=== PATIENT | male | born 1930 | race Caucasian/White ===

== ENCOUNTER 2017-01-03 04:22 | Inpatient (IN) | payer MEDICARE, BC ==
[2017-01-03] VITALS (545 sets, daily range): BP systolic 142–171; BP diastolic 74–143; PULSE 73–93; TEMP 96.9–98.2; O2SAT 67–100
[~2017-01-03] VITALS: Ht 172.7 cm; Wt 111.6 kg
[2017-01-03] MEDS ORDERED: ASPIRIN 32325 MG/TAB PO (04:49)
[2017-01-03] MEDS ORDERED: PRILOSEC 20MG20 MG PO (04:51)
[2017-01-03] MEDS ORDERED: ASPIRIN 32325 MG/TA1 PO (04:51)
[2017-01-03] MEDS ORDERED: EC-NAPROSYN500 MG PO (04:51)
[2017-01-03 04:52] LABS: MEAN CELL VOLUME 94 fl (80.0-100.0); MEAN CORPUSCULAR HGB CONC 32 g/dl (33.0-37.0); MEAN PLATELET VOLUME 11.9 fl (7.4-10.4); PLATELET COUNT 163 K/mm3 (130-400); RED BLOOD COUNT 6.12 M/mm3 (4.20-5.60)
[2017-01-03] MEDS ORDERED: COZAAR 50MG50 MG/TAB PO (04:52)
[2017-01-03 04:55] LABS: PROTHROMBIN TIME 11.3 SECONDS (9.7-12.8)
[2017-01-03 04:57] LABS: ADJUSTED CALCIUM 8.8 mg/dL (8.4-10.2); ALANINE AMINOTRANSFERASE 35 U/L (21-72); ALBUMIN 4.2 gm/dL (3.5-5.0); ALKALINE PHOSPHATASE 84 U/L (50-136); ANION GAP 11 mmol/L (7-16); BILIRUBIN,TOTAL 1.3 mg/dL (0.0-1.0); BLOOD UREA NITROGEN 19 mg/dL (9-20); CARBON DIOXIDE 29 mmol/L (22-30); CHLORIDE 99 mmol/L (98-107); CREATINE KINASE 55 U/L (55-170); CREATININE, serum 1.19 mg/dL (0.66-1.25); GLUCOSE 121 mg/dL (74-106); LIPASE 50 U/L (23-300); POTASSIUM 4.7 mmol/L (3.4-5.0); SODIUM 138 mmol/L (137-145); TOTAL PROTEIN 7.6 gm/dL (6.4-8.2)
[2017-01-03 04:59] LABS: ADD PATHOLOGY DIFF REVIEW NO; HEMATOCRIT 57.4 % (42.0-52.0); HEMOGLOBIN 18.3 g/dl (13.5-18.0); MEAN CORPUSCULAR HEMOGLOBIN 30 pg (27.0-31.0)
[2017-01-03 05:07] LABS: BAND 15 % (0-10); EOSINOPHIL 1 % (0-4); NEUTROPHILS 55 % (42.0-75.2); PLATELET ESTIMATE NORMAL (NORMAL); TOTAL CELLS COUNTED 100
[2017-01-03 05:09] LABS: B-TYPE NATRIURETIC PEPTIDE 197 pg/mL (0-450); TROPONIN-I < 0.012 ng/mL (0.000-0.034)
[2017-01-03 07:22] LABS: PH 5 (5-8); SQUAMOUS EPITHELIAL 0-2 /hpf; URINE APPEARANCE Clear; URINE BACTERIA None Seen /hpf; URINE BILIRUBIN Negative (NEGATIVE); URINE BLOOD Negative (NEGATIVE); URINE COLOR Yellow; URINE GLUCOSE Negative (NEGATIVE); URINE KETONE Negative (NEGATIVE); URINE RBC 0-2 /hpf; URINE WBC 0-2 /hpf
[2017-01-03 14:02] LABS: ARTERIAL BLD GAS O2 SATURATION 98.7 % (92-100); ARTERIAL BLD GAS TCO2 CT 27.1; ARTERIAL BLOOD GAS BASE EXCESS -4.6 (-2-2); ARTERIAL BLOOD GAS HCO3 25.1 meq/L (22-26); ARTERIAL BLOOD GAS pH 7.22 (7.35-7.45); OXYHEMOGLOBIN 97.5 %
[2017-01-03 14:03] LABS: ARTERIAL BLOOD GAS PO2 198.2 mmHg (80-100); ATS? YES
[2017-01-03 14:04] LABS: ALLEN TEST NO
[2017-01-03] MEDS ORDERED: NORVASC 5MG5 MG/TAB PO (17:28)
[2017-01-03] MEDS ORDERED: DITROPAN XL 5MG5 M1 PO (17:28)
[2017-01-03 19:12] LABS: ARTERIAL BLD GAS O2 SATURATION 96.3 % (92-100); ARTERIAL BLD GAS TCO2 CT 30.5; ARTERIAL BLOOD GAS BASE EXCESS 0.8 (-2-2); ARTERIAL BLOOD GAS HCO3 28.7 meq/L (22-26); ARTERIAL BLOOD GAS PHT 7.32 C (7.35-7.45); ARTERIAL BLOOD GAS PO2 85.1 mmHg (80-100); ARTERIAL BLOOD GAS PO2T 85.1 (80-100); ARTERIAL BLOOD GAS pH 7.32 (7.35-7.45); OXYHEMOGLOBIN 95.5 %
[2017-01-03 19:13] LABS: ALLEN TEST YES; ALLENS TEST RESULT PASS; ATS? YES
[2017-01-03 19:15] LABS: CALCIUM 8.8 mg/dL (8.4-10.2); CREATININE, serum 1.02 mg/dL (0.66-1.25); POTASSIUM 5.4 mmol/L (3.4-5.0)
[2017-01-04] VITALS (987 sets, daily range): BP systolic 139–159; BP diastolic 69–91; PULSE 81–110; TEMP 97–98.9; O2SAT 76–100
[2017-01-04 09:21] LABS: ADD PATHOLOGY DIFF REVIEW NO
[2017-01-04 09:27] LABS: MEAN CELL VOLUME 95 fl (80.0-100.0); MEAN CORPUSCULAR HGB CONC 32 g/dl (33.0-37.0); MEAN PLATELET VOLUME 11.9 fl (7.4-10.4); PLATELET COUNT 147 K/mm3 (130-400); RED BLOOD COUNT 6.27 M/mm3 (4.20-5.60); REDCELL DISTRIBUTION WIDTH-CV 14.2 % (11.5-14.5); WHITE BLOOD COUNT 19.7 K/mm3 (4.8-10.8)
[2017-01-04 09:30] LABS: HEMATOCRIT 59.6 % (42.0-52.0); MEAN CORPUSCULAR HEMOGLOBIN 30 pg (27.0-31.0)
[2017-01-04 09:35] LABS: ADJUSTED CALCIUM 8.9 mg/dL (8.4-10.2); ALBUMIN 4.3 gm/dL (3.5-5.0); BILIRUBIN,TOTAL 4.6 mg/dL (0.0-1.0); CALCIUM 9.1 mg/dL (8.4-10.2); CREATININE, serum 1.02 mg/dL (0.66-1.25); POTASSIUM 5.1 mmol/L (3.4-5.0); TOTAL PROTEIN 7.7 gm/dL (6.4-8.2)
[2017-01-04 10:17] LABS: BAND 23 % (0-10); NEUTROPHILS 73 % (42.0-75.2); TOTAL CELLS COUNTED 100
[2017-01-04 10:18] LABS: PLATELET ESTIMATE NORMAL (NORMAL)
[2017-01-05] VITALS (8 sets, daily range): BP systolic 109–130; BP diastolic 54–64; PULSE 95–111; TEMP 97.9–98.9
[2017-01-05 11:25] LABS: BASO % 0.2 % (0.0-2.0); GRAN # 17.9 (1.4-6.5); GRAN % 89.7 % (42.2-75.2); HEMOGLOBIN 17.2 g/dl (13.5-18.0); LYMPH # 0.5 (1.2-3.4); LYMPH % 2.6 % (20.0-51.0); MEAN CELL VOLUME 95 fl (80.0-100.0); MEAN CORPUSCULAR HEMOGLOBIN 30 pg (27.0-31.0); MEAN CORPUSCULAR HGB CONC 32 g/dl (33.0-37.0); MEAN PLATELET VOLUME 12.3 fl (7.4-10.4); MONO # 1.3 (0.1-0.6); MONO % 6.5 % (1.7-9.3); PLATELET COUNT 159 K/mm3 (130-400); RED BLOOD COUNT 5.71 M/mm3 (4.20-5.60); REDCELL DISTRIBUTION WIDTH-CV 14.4 % (11.5-14.5)
[2017-01-05 11:32] LABS: HEMATOCRIT 54.5 % (42.0-52.0)
[2017-01-05 11:42] LABS: ALBUMIN 3.7 gm/dL (3.5-5.0); BILIRUBIN,TOTAL 5.1 mg/dL (0.0-1.0); CALCIUM 8.8 mg/dL (8.4-10.2); CREATININE, serum 1.51 mg/dL (0.66-1.25); POTASSIUM 5.2 mmol/L (3.4-5.0); TOTAL PROTEIN 6.9 gm/dL (6.4-8.2)
[2017-01-06 02:39] VITALS: BP 123/58; PULSE 97; TEMP 98.5
[2017-01-06 05:44] VITALS: BP 119/62; PULSE 98; TEMP 98.2
[2017-01-06 09:48] VITALS: BP 128/61; PULSE 101; TEMP 98.1
[2017-01-06 10:53] LABS: HEMOGLOBIN 16.3 g/dl (13.5-18.0); MEAN CELL VOLUME 97 fl (80.0-100.0); MEAN CORPUSCULAR HEMOGLOBIN 30 pg (27.0-31.0); MEAN CORPUSCULAR HGB CONC 31 g/dl (33.0-37.0); MEAN PLATELET VOLUME 12.3 fl (7.4-10.4); PLATELET COUNT 175 K/mm3 (130-400); RED BLOOD COUNT 5.43 M/mm3 (4.20-5.60); REDCELL DISTRIBUTION WIDTH-CV 14.5 % (11.5-14.5); WHITE BLOOD COUNT 14.4 K/mm3 (4.8-10.8)
[2017-01-06 10:54] LABS: HEMATOCRIT 52.8 % (42.0-52.0)
[2017-01-06 10:55] LABS: ADD PATHOLOGY DIFF REVIEW NO
[2017-01-06 10:58] LABS: ADJUSTED CALCIUM 9.4 mg/dL (8.4-10.2); ALBUMIN 3.4 gm/dL (3.5-5.0); BILIRUBIN,TOTAL 4.3 mg/dL (0.0-1.0); CALCIUM 8.9 mg/dL (8.4-10.2); CREATININE, serum 1.16 mg/dL (0.66-1.25); POTASSIUM 5.2 mmol/L (3.4-5.0); TOTAL PROTEIN 6.9 gm/dL (6.4-8.2)
[2017-01-06 11:32] LABS: BAND 8 % (0-10); NEUTROPHILS 78 % (42.0-75.2); TOTAL CELLS COUNTED 100
[2017-01-06 11:34] LABS: PLATELET ESTIMATE NORMAL (NORMAL)
[2017-01-06 14:45] VITALS: BP 127/66; PULSE 108; TEMP 99.2
[2017-01-06] MEDS ORDERED: NORCO 325 MG-7.1 TAB PO (16:44)
[2017-01-06] MEDS ORDERED: LEVAQUIN 5500 MG/TA1 PO (16:44)
[2017-01-07 09:52] LABS: ALLEN TEST YES; ALLENS TEST RESULT PASS; ARTERIAL BLD GAS O2 SATURATION 94.1 % (92-100); ARTERIAL BLD GAS TCO2 CT 29.9; ARTERIAL BLOOD GAS BASE EXCESS -0.9 (-2-2); ARTERIAL BLOOD GAS pH 7.27 (7.35-7.45); ATS? YES; OXYHEMOGLOBIN 93.4 %
== END 2017-01-06 19:23 | disposition home or self-care (01) | DRG 417 ==
LOC: COL.ER 04:22 → JCC 09:02 → SURG 09:02 → ICU 09:02 → SURG 11:20 → ICU 12:56 → SURG 01-04 17:50 → ICU 01-04 17:50 → SURG 01-04 17:50
PROVIDERS: Emergency Medicine; Internal Medicine; Nurse Anesthetist, Certified Registered; Surgery
PROC: BF131ZZ Fluoroscopy of Gallbladder and Bile Ducts using Low Osmolar Contrast (ICD-10-PCS; 2017-01-03)
PROC: 0FT44ZZ Resection of Gallbladder, Percutaneous Endoscopic Approach (ICD-10-PCS; principal; 2017-01-03 10:30)
DX: K80.00 Calculus of gallbladder with acute cholecystitis without obstruction (principal); J96.01 Acute respiratory failure with hypoxia; I10 Essential (primary) hypertension; Z87.891 Personal history of nicotine dependence; E66.9 Obesity, unspecified; Z68.36 Body mass index [BMI] 36.0-36.9, adult; F10.10 Alcohol abuse, uncomplicated
CPT/HCPCS: OP; 99223; 99231-AI; 99232-AI; 99233-AI; J1956; J2270; J2405; J2704; J2930; J3010; J7030; J7120; J7512; Q9967

== ENCOUNTER 2017-01-07 17:12 | Inpatient (IN) | payer MEDICARE, BC ==
[~2017-01-07] VITALS: Ht 170.2 cm; Wt 111.9 kg
[~2017-01-07 17:12] MED LIST: ASPIRIN 32325 MG/TA1 PO; ASPIRIN 32325 MG/TAB PO; COZAAR 50MG50 MG/TAB PO; DITROPAN XL 5MG5 M1 PO; EC-NAPROSYN500 MG PO; LEVAQUIN 5500 MG/TA1 PO; NORCO 325 MG-7.1 TAB PO; NORVASC 5MG5 MG/TAB PO; PRILOSEC 20MG20 MG PO
[2017-01-07 17:38] VITALS: BP 99/44; PULSE 108
[2017-01-07 17:51] VITALS: BP 97/52; PULSE 107; TEMP 105; TEMP 98.5
[2017-01-07 21:52] VITALS: BP 109/61; PULSE 95; TEMP 97.3
[2017-01-07 23:10] LABS: HEMATOCRIT 46.5 % (42.0-52.0); HEMOGLOBIN 14.6 g/dl (13.5-18.0); MEAN CELL VOLUME 96 fl (80.0-100.0); MEAN CORPUSCULAR HEMOGLOBIN 30 pg (27.0-31.0); MEAN CORPUSCULAR HGB CONC 31 g/dl (33.0-37.0); MEAN PLATELET VOLUME 12.1 fl (7.4-10.4); PLATELET COUNT 175 K/mm3 (130-400); RED BLOOD COUNT 4.85 M/mm3 (4.20-5.60); REDCELL DISTRIBUTION WIDTH-CV 14.5 % (11.5-14.5); WHITE BLOOD COUNT 19.6 K/mm3 (4.8-10.8)
[2017-01-07 23:18] LABS: ADD PATHOLOGY DIFF REVIEW NO
[2017-01-07 23:23] LABS: BAND 2 % (0-10); EOSINOPHIL 1 % (0-4); METAMYELOCYTE 2 % (0-0); MYELOCYTE 2 % (0-0); NEUTROPHILS 77 % (42.0-75.2); POIKILOCYTOSIS 1+; TOTAL CELLS COUNTED 100
[2017-01-07 23:26] LABS: ADJUSTED CALCIUM 9.1 mg/dL (8.4-10.2); ALBUMIN 2.8 gm/dL (3.5-5.0); BILIRUBIN,TOTAL 3.8 mg/dL (0.0-1.0); CALCIUM 8.1 mg/dL (8.4-10.2); CREATININE, serum 1.84 mg/dL (0.66-1.25); POTASSIUM 4.7 mmol/L (3.4-5.0); TOTAL PROTEIN 5.9 gm/dL (6.4-8.2)
[2017-01-08 01:52] VITALS: BP 140/63; PULSE 90; TEMP 97.2
[2017-01-08 03:22] LABS: GRANULAR CAST >12 /lpf; PH 5 (5-8); SQUAMOUS EPITHELIAL 0-2 /hpf; URINE APPEARANCE Hazy; URINE BACTERIA None Seen /hpf; URINE BILIRUBIN Negative (NEGATIVE); URINE BLOOD 1+ (NEGATIVE); URINE COLOR Amber; URINE GLUCOSE Negative (NEGATIVE); URINE KETONE Negative (NEGATIVE); URINE UROBILINOGEN >=4.0 mg/dL (NEGATIVE)
[2017-01-08 05:24] VITALS: BP 130/57; PULSE 81; TEMP 98.2
[2017-01-08 06:56] LABS: HEMATOCRIT 49.7 % (42.0-52.0); HEMOGLOBIN 15.4 g/dl (13.5-18.0); MEAN CELL VOLUME 96 fl (80.0-100.0); MEAN CORPUSCULAR HEMOGLOBIN 30 pg (27.0-31.0); MEAN CORPUSCULAR HGB CONC 31 g/dl (33.0-37.0); MEAN PLATELET VOLUME 11.9 fl (7.4-10.4); PLATELET COUNT 200 K/mm3 (130-400); RED BLOOD COUNT 5.17 M/mm3 (4.20-5.60); REDCELL DISTRIBUTION WIDTH-CV 14.4 % (11.5-14.5)
[2017-01-08 06:58] LABS: WHITE BLOOD COUNT 20.3 K/mm3 (4.8-10.8)
[2017-01-08 07:10] LABS: ADJUSTED CALCIUM 9.3 mg/dL (8.4-10.2); ALBUMIN 2.9 gm/dL (3.5-5.0); BILIRUBIN,TOTAL 3.8 mg/dL (0.0-1.0); CALCIUM 8.4 mg/dL (8.4-10.2); CREATININE, serum 1.37 mg/dL (0.66-1.25); POTASSIUM 4.6 mmol/L (3.4-5.0); TOTAL PROTEIN 6.1 gm/dL (6.4-8.2)
[2017-01-08 07:59] LABS: BAND 28 % (0-10); MYELOCYTE 1 % (0-0); NEUTROPHILS 51 % (42.0-75.2); PLATELET ESTIMATE NORMAL (NORMAL); TOTAL CELLS COUNTED 100
[2017-01-08 08:18] LABS: ADD PATHOLOGY DIFF REVIEW YES
[2017-01-08 10:00] VITALS: BP 141/66; PULSE 96; TEMP 98.2
[2017-01-08 14:00] VITALS: BP 152/68; PULSE 96; TEMP 98
[2017-01-08 21:37] VITALS: BP 133/71; PULSE 96; TEMP 98.3
[2017-01-09 01:41] VITALS: BP 142/55; PULSE 96; TEMP 97.5
[2017-01-09 06:26] VITALS: BP 133/58; PULSE 90; TEMP 97.5
[2017-01-09 10:24] LABS: BILIRUBIN,TOTAL 2.2 mg/dL (0.0-1.0); CALCIUM 8.5 mg/dL (8.4-10.2); CREATININE, serum 1.11 mg/dL (0.66-1.25); POTASSIUM 4.4 mmol/L (3.4-5.0); TOTAL PROTEIN 6.3 gm/dL (6.4-8.2)
[2017-01-09 10:33] LABS: BILIRUBIN,DIRECT 1.6 mg/dL (0.0-0.4)
[2017-01-09 10:34] LABS: HEMOGLOBIN 16.2 g/dl (13.5-18.0); MEAN CELL VOLUME 98 fl (80.0-100.0); MEAN CORPUSCULAR HEMOGLOBIN 30 pg (27.0-31.0); MEAN CORPUSCULAR HGB CONC 30 g/dl (33.0-37.0); MEAN PLATELET VOLUME 12.1 fl (7.4-10.4); PLATELET COUNT 250 K/mm3 (130-400); RED BLOOD COUNT 5.49 M/mm3 (4.20-5.60); REDCELL DISTRIBUTION WIDTH-CV 14.4 % (11.5-14.5)
[2017-01-09 10:37] VITALS: BP 136/59; PULSE 94; TEMP 97.7
[2017-01-09 10:45] LABS: ADD PATHOLOGY DIFF REVIEW NO
[2017-01-09 11:39] LABS: INR 1.4 (0.8-3.0); PROTHROMBIN TIME 15.4 SECONDS (9.7-12.8)
[2017-01-09 11:46] LABS: BAND 14 % (0-10); EOSINOPHIL 1 % (0-4); METAMYELOCYTE 3 % (0-0); MYELOCYTE 6 % (0-0); NEUTROPHILS 56 % (42.0-75.2); PLATELET ESTIMATE NORMAL (NORMAL); TOTAL CELLS COUNTED 100
[2017-01-09 14:44] VITALS: BP 137/63; PULSE 91; TEMP 98.3
[2017-01-09 18:12] VITALS: BP 140/65; PULSE 94
[2017-01-09 22:36] VITALS: BP 129/67; PULSE 91; TEMP 99.1
[2017-01-10 02:32] VITALS: BP 134/59; PULSE 94; TEMP 98.1
[2017-01-10 06:18] VITALS: BP 136/66; PULSE 89; TEMP 98.3
[2017-01-10 06:45] LABS: HEMATOCRIT 50.9 % (42.0-52.0); HEMOGLOBIN 15.8 g/dl (13.5-18.0); MEAN CELL VOLUME 96 fl (80.0-100.0); MEAN CORPUSCULAR HEMOGLOBIN 30 pg (27.0-31.0); MEAN CORPUSCULAR HGB CONC 31 g/dl (33.0-37.0); MEAN PLATELET VOLUME 11.2 fl (7.4-10.4); PLATELET COUNT 249 K/mm3 (130-400); REDCELL DISTRIBUTION WIDTH-CV 14.6 % (11.5-14.5)
[2017-01-10 06:57] LABS: ADD PATHOLOGY DIFF REVIEW NO; WHITE BLOOD COUNT 20.1 K/mm3 (4.8-10.8)
[2017-01-10 07:11] LABS: ADJUSTED CALCIUM 9.4 mg/dL (8.4-10.2); ALBUMIN 2.9 gm/dL (3.5-5.0); BILIRUBIN,TOTAL 2.1 mg/dL (0.0-1.0); CALCIUM 8.5 mg/dL (8.4-10.2); CREATININE, serum 0.86 mg/dL (0.66-1.25); POTASSIUM 4.1 mmol/L (3.4-5.0); TOTAL PROTEIN 6.1 gm/dL (6.4-8.2)
[2017-01-10 08:41] LABS: BAND 12 % (0-10); METAMYELOCYTE 1 % (0-0); MYELOCYTE 6 % (0-0); NEUTROPHILS 61 % (42.0-75.2); TOTAL CELLS COUNTED 100
[2017-01-10 08:45] LABS: PLATELET ESTIMATE NORMAL (NORMAL)
[2017-01-10 09:59] VITALS: BP 154/65; PULSE 93
[2017-01-10 13:53] VITALS: BP 140/77; PULSE 88; TEMP 98.2
[2017-01-10 18:06] VITALS: BP 143/76; PULSE 91; TEMP 98.2
[2017-01-10 21:12] VITALS: BP 153/77; PULSE 95; TEMP 98.2
[2017-01-11 01:09] VITALS: BP 165/83; PULSE 97; TEMP 98.2
[2017-01-11 05:04] VITALS: BP 130/57; PULSE 93; TEMP 98.2
[2017-01-11 07:14] LABS: HEMATOCRIT 51.3 % (42.0-52.0); HEMOGLOBIN 16.1 g/dl (13.5-18.0); MEAN CELL VOLUME 95 fl (80.0-100.0); MEAN CORPUSCULAR HEMOGLOBIN 30 pg (27.0-31.0); MEAN CORPUSCULAR HGB CONC 31 g/dl (33.0-37.0); MEAN PLATELET VOLUME 11.3 fl (7.4-10.4); PLATELET COUNT 248 K/mm3 (130-400); RED BLOOD COUNT 5.43 M/mm3 (4.20-5.60); REDCELL DISTRIBUTION WIDTH-CV 14.6 % (11.5-14.5)
[2017-01-11 07:17] LABS: ADJUSTED CALCIUM 9.2 mg/dL (8.4-10.2); ALBUMIN 2.9 gm/dL (3.5-5.0); BILIRUBIN,TOTAL 2.1 mg/dL (0.0-1.0); CALCIUM 8.3 mg/dL (8.4-10.2); CREATININE, serum 0.85 mg/dL (0.66-1.25); POTASSIUM 3.9 mmol/L (3.4-5.0); TOTAL PROTEIN 6.1 gm/dL (6.4-8.2)
[2017-01-11 07:18] LABS: ADD PATHOLOGY DIFF REVIEW NO; WHITE BLOOD COUNT 20.2 K/mm3 (4.8-10.8)
[2017-01-11 08:20] LABS: BAND 25 % (0-10); METAMYELOCYTE 1 % (0-0); MYELOCYTE 8 % (0-0); NEUTROPHILS 61 % (42.0-75.2); PLATELET ESTIMATE NORMAL (NORMAL); TOTAL CELLS COUNTED 100
[2017-01-11 10:45] VITALS: BP 127/60; PULSE 83; TEMP 97.6
[2017-01-11 14:18] VITALS: BP 155/78; PULSE 92; TEMP 98.6
[2017-01-11 18:35] VITALS: BP 152/72; PULSE 97; TEMP 98.8
[2017-01-11 20:46] VITALS: BP 141/72; PULSE 94; TEMP 98.7
[2017-01-12 00:31] VITALS: BP 148/74; PULSE 94; TEMP 98.6
[2017-01-12 04:17] VITALS: BP 145/70; PULSE 92; TEMP 97.9
[2017-01-12 06:58] LABS: HEMATOCRIT 50.9 % (42.0-52.0); HEMOGLOBIN 15.7 g/dl (13.5-18.0); MEAN CELL VOLUME 96 fl (80.0-100.0); MEAN CORPUSCULAR HEMOGLOBIN 30 pg (27.0-31.0); MEAN CORPUSCULAR HGB CONC 31 g/dl (33.0-37.0); MEAN PLATELET VOLUME 11.4 fl (7.4-10.4); PLATELET COUNT 233 K/mm3 (130-400); REDCELL DISTRIBUTION WIDTH-CV 14.6 % (11.5-14.5)
[2017-01-12 07:05] LABS: WHITE BLOOD COUNT 20.8 K/mm3 (4.8-10.8)
[2017-01-12 07:06] LABS: ADD PATHOLOGY DIFF REVIEW NO
[2017-01-12 09:01] LABS: BAND 40 % (0-10); EOSINOPHIL 2 % (0-4); METAMYELOCYTE 2 % (0-0); MYELOCYTE 9 % (0-0); NEUTROPHILS 28 % (42.0-75.2); PLATELET ESTIMATE NORMAL (NORMAL); TOTAL CELLS COUNTED 100
[2017-01-12 09:43] VITALS: BP 133/56; PULSE 87; TEMP 98
[2017-01-12 15:00] VITALS: BP 137/66; PULSE 92; TEMP 98.1
[2017-01-12 18:31] VITALS: BP 131/55; PULSE 87; TEMP 98
[2017-01-12 23:11] VITALS: BP 151/68; PULSE 94; TEMP 98
[2017-01-13 01:13] VITALS: BP 144/69; PULSE 92; TEMP 98.5
[2017-01-13 04:15] VITALS: BP 140/68; PULSE 92; TEMP 98.3
[2017-01-13 07:52] LABS: HEMOGLOBIN 16.7 g/dl (13.5-18.0); MEAN CELL VOLUME 96 fl (80.0-100.0); MEAN CORPUSCULAR HEMOGLOBIN 30 pg (27.0-31.0); MEAN CORPUSCULAR HGB CONC 31 g/dl (33.0-37.0); PLATELET COUNT 213 K/mm3 (130-400); RED BLOOD COUNT 5.63 M/mm3 (4.20-5.60); REDCELL DISTRIBUTION WIDTH-CV 14.5 % (11.5-14.5)
[2017-01-13 08:00] LABS: HEMATOCRIT 53.9 % (42.0-52.0); WHITE BLOOD COUNT 21.4 K/mm3 (4.8-10.8)
[2017-01-13 08:01] LABS: ADJUSTED CALCIUM 9.5 mg/dL (8.4-10.2); BILIRUBIN,TOTAL 1.6 mg/dL (0.0-1.0); CALCIUM 8.7 mg/dL (8.4-10.2); CREATININE, serum 0.89 mg/dL (0.66-1.25); TOTAL PROTEIN 6.3 gm/dL (6.4-8.2)
[2017-01-13 10:12] VITALS: BP 125/56; PULSE 90; TEMP 97.2
[2017-01-13 12:40] LABS: ADD PATHOLOGY DIFF REVIEW YES; BAND 27 % (0-10); EOSINOPHIL 1 % (0-4); METAMYELOCYTE 1 % (0-0); NEUTROPHILS 59 % (42.0-75.2); PLATELET ESTIMATE NORMAL (NORMAL); TOTAL CELLS COUNTED 100
[2017-01-13 12:41] LABS: TOXIC GRANULATION PRESENT
[2017-01-13 14:19] VITALS: BP 136/64; PULSE 89; TEMP 98
[2017-01-13 18:24] VITALS: BP 133/64; PULSE 88; TEMP 98.7
[2017-01-13 22:01] VITALS: BP 133/68; PULSE 88; TEMP 98.4
[2017-01-14] VITALS (13 sets, daily range): BP systolic 125–148; BP diastolic 63–73; PULSE 84–93; TEMP 98.3–98.8
[2017-01-14 08:37] LABS: PATHOLOGY DIFF REVIEW OK
[2017-01-14 10:35] LABS: MEAN CELL VOLUME 95 fl (80.0-100.0); MEAN CORPUSCULAR HEMOGLOBIN 29 pg (27.0-31.0); MEAN CORPUSCULAR HGB CONC 31 g/dl (33.0-37.0); MEAN PLATELET VOLUME 11.6 fl (7.4-10.4); PLATELET COUNT 212 K/mm3 (130-400); RED BLOOD COUNT 5.54 M/mm3 (4.20-5.60); REDCELL DISTRIBUTION WIDTH-CV 14.1 % (11.5-14.5)
[2017-01-14 10:37] LABS: ADD PATHOLOGY DIFF REVIEW NO; HEMATOCRIT 52.5 % (42.0-52.0); WHITE BLOOD COUNT 22.4 K/mm3 (4.8-10.8)
[2017-01-14 10:51] LABS: ADJUSTED CALCIUM 9.4 mg/dL (8.4-10.2); ALBUMIN 3.1 gm/dL (3.5-5.0); BILIRUBIN,TOTAL 1.3 mg/dL (0.0-1.0); CALCIUM 8.7 mg/dL (8.4-10.2); CREATININE, serum 0.91 mg/dL (0.66-1.25); MAGNESIUM 1.7 mg/dL (1.6-2.3); POTASSIUM 3.5 mmol/L (3.4-5.0); TOTAL PROTEIN 6.5 gm/dL (6.4-8.2)
[2017-01-14 13:31] LABS: BAND 13 % (0-10); EOSINOPHIL 2 % (0-4); NEUTROPHILS 69 % (42.0-75.2); PLATELET ESTIMATE NORMAL (NORMAL); TOTAL CELLS COUNTED 100
[2017-01-15 05:35] VITALS: BP 134/67; PULSE 88; TEMP 99
[2017-01-15 07:12] LABS: HEMATOCRIT 48.8 % (42.0-52.0); HEMOGLOBIN 15.5 g/dl (13.5-18.0); MEAN CELL VOLUME 93 fl (80.0-100.0); MEAN CORPUSCULAR HEMOGLOBIN 30 pg (27.0-31.0); MEAN CORPUSCULAR HGB CONC 32 g/dl (33.0-37.0); MEAN PLATELET VOLUME 11.3 fl (7.4-10.4); PLATELET COUNT 221 K/mm3 (130-400); RED BLOOD COUNT 5.24 M/mm3 (4.20-5.60); WHITE BLOOD COUNT 18.9 K/mm3 (4.8-10.8)
[2017-01-15 07:14] LABS: ADD PATHOLOGY DIFF REVIEW NO
[2017-01-15 07:22] LABS: CALCIUM 8.5 mg/dL (8.4-10.2); CREATININE, serum 0.89 mg/dL (0.66-1.25); MAGNESIUM 1.6 mg/dL (1.6-2.3); POTASSIUM 3.6 mmol/L (3.4-5.0)
[2017-01-15 09:19] LABS: BAND 19 % (0-10); METAMYELOCYTE 1 % (0-0); MICROCYTOSIS 1+; MYELOCYTE 3 % (0-0); NEUTROPHILS 59 % (42.0-75.2); PLATELET ESTIMATE NORMAL (NORMAL); TOTAL CELLS COUNTED 100
[2017-01-15 09:21] LABS: ANISOCYTOSIS 1+
[2017-01-15 09:59] VITALS: BP 133/78; PULSE 94; TEMP 98.7
[2017-01-15 14:14] VITALS: BP 151/82; PULSE 97; TEMP 97.6
[2017-01-15 17:59] VITALS: BP 154/74; PULSE 91; TEMP 97.9
[2017-01-15 21:46] VITALS: BP 147/72; PULSE 71; TEMP 98.1
[2017-01-16 01:51] VITALS: BP 139/68; PULSE 88; TEMP 98.5
[2017-01-16 05:45] VITALS: BP 157/75; PULSE 95; TEMP 98.2
[2017-01-16 07:38] LABS: HEMATOCRIT 49.8 % (42.0-52.0); HEMOGLOBIN 15.9 g/dl (13.5-18.0); MEAN CELL VOLUME 93 fl (80.0-100.0); MEAN CORPUSCULAR HEMOGLOBIN 30 pg (27.0-31.0); MEAN CORPUSCULAR HGB CONC 32 g/dl (33.0-37.0); MEAN PLATELET VOLUME 11.4 fl (7.4-10.4); PLATELET COUNT 222 K/mm3 (130-400); RED BLOOD COUNT 5.33 M/mm3 (4.20-5.60); REDCELL DISTRIBUTION WIDTH-CV 13.8 % (11.5-14.5)
[2017-01-16 07:40] LABS: ADD PATHOLOGY DIFF REVIEW NO; WHITE BLOOD COUNT 22.7 K/mm3 (4.8-10.8)
[2017-01-16 07:45] LABS: ADJUSTED CALCIUM 9.3 mg/dL (8.4-10.2); ALBUMIN 3.3 gm/dL (3.5-5.0); BILIRUBIN,TOTAL 1.6 mg/dL (0.0-1.0); CALCIUM 8.7 mg/dL (8.4-10.2); CREATININE, serum 0.94 mg/dL (0.66-1.25); MAGNESIUM 1.6 mg/dL (1.6-2.3); POTASSIUM 3.7 mmol/L (3.4-5.0); TOTAL PROTEIN 6.8 gm/dL (6.4-8.2)
[2017-01-16 09:08] LABS: PH 5 (5-8); SQUAMOUS EPITHELIAL None Seen /hpf; URINE APPEARANCE Clear; URINE BACTERIA None Seen /hpf; URINE BILIRUBIN Negative (NEGATIVE); URINE BLOOD 1+ (NEGATIVE); URINE COLOR Amber; URINE GLUCOSE Negative (NEGATIVE); URINE KETONE Negative (NEGATIVE)
[2017-01-16 09:38] VITALS: BP 151/71; PULSE 96; TEMP 98.5
[2017-01-16 09:38] LABS: BAND 21 % (0-10); METAMYELOCYTE 1 % (0-0); MYELOCYTE 1 % (0-0); NEUTROPHILS 67 % (42.0-75.2); TOTAL CELLS COUNTED 100
[2017-01-16 09:39] LABS: PLATELET ESTIMATE NORMAL (NORMAL)
[2017-01-16 13:26] VITALS: BP 124/63; PULSE 84; TEMP 98.2
[2017-01-16] MEDS ORDERED: FLAGYL 250250 MG/TAB PO (14:38)
[2017-01-16] MEDS ORDERED: LEVAQUIN 750MG750 M1 PO (14:38)
[2017-01-16] MEDS ORDERED: FLOMAX 0.40.4 MG/CAP PO (14:39)
== END 2017-01-16 16:45 | disposition home health service (06) | DRG 393 ==
LOC: SURG 17:12
PROVIDERS: Family Medicine; Internal Medicine; Physician Assistant; Surgery
PROC: 0W9G3ZX Drainage of Peritoneal Cavity, Percutaneous Approach, Diagnostic (ICD-10-PCS; principal; 2017-01-09)
PROC: 0D9W30Z Drainage of Peritoneum with Drainage Device, Percutaneous Approach (ICD-10-PCS; 2017-01-14)
DX: K65.3 Choleperitonitis (principal); J18.9 Pneumonia, unspecified organism; N17.9 Acute kidney failure, unspecified; I10 Essential (primary) hypertension; N40.1 Benign prostatic hyperplasia with lower urinary tract symptoms; R33.8 Other retention of urine; K21.9 Gastro-esophageal reflux disease without esophagitis; F10.10 Alcohol abuse, uncomplicated
CPT/HCPCS: OP; 99223; 99232-AI; 99233-AI; A4315; A9284; A9537; C1729; J1644; J1940; J1956; J2543; J7030; J7050; Q9967

== ENCOUNTER 2020-06-08 16:26 | Emergency (ER) | payer MEDICARE, BC ==
[~2020-06-08] VITALS: Ht 172.7 cm; Wt 109.1 kg
[~2020-06-08 16:26] MED LIST changes: +FLAGYL 250250 MG/TAB PO; +FLOMAX 0.40.4 MG/CAP PO; +LEVAQUIN 750MG750 M1 PO
[2020-06-08 16:39] VITALS: TEMP 98.1
[2020-06-08 17:14] LABS: MEAN CELL VOLUME 99 fl (80.0-100.0); MEAN CORPUSCULAR HGB CONC 31 g/dl (33.0-37.0); MEAN PLATELET VOLUME 11.8 fl (7.4-10.4); PLATELET COUNT 162 K/mm3 (130-400); RED BLOOD COUNT 6.12 M/mm3 (4.20-5.60); REDCELL DISTRIBUTION WIDTH-CV 13.7 % (11.5-14.5)
[2020-06-08 17:18] LABS: HEMATOCRIT 60.6 % (42.0-52.0); HEMOGLOBIN 18.9 g/dl (13.5-18.0); MEAN CORPUSCULAR HEMOGLOBIN 31 pg (27.0-31.0)
[2020-06-08 17:20] LABS: INR 1.1 (0.8-3.0); PROTHROMBIN TIME 11.9 SECONDS (9.7-12.8)
[2020-06-08 17:25] LABS: ALANINE AMINOTRANSFERASE 17 U/L (4-49); ALBUMIN 4.2 gm/dL (3.5-5.0); ALKALINE PHOSPHATASE 95 U/L (50-136); ANION GAP 9 mmol/L (7-16); AST,SGOT 30 U/L (15-37); BILIRUBIN,TOTAL 1.3 mg/dL (0.0-1.0); BLOOD UREA NITROGEN 19 mg/dL (9-20); CALCIUM 8.5 mg/dL (8.4-10.2); CARBON DIOXIDE 30 mmol/L (22-30); CHLORIDE 102 mmol/L (98-107); CREATININE, serum 1.07 (0.66-1.25); GLUCOSE 106 mg/dL (74-106); LIPASE 60 U/L (23-300); POTASSIUM 4.8 mmol/L (3.4-5.0); SODIUM 141 mmol/L (137-145); TOTAL PROTEIN 7.4 gm/dL (6.4-8.2)
[2020-06-08 17:36] LABS: TROPONIN-I < 0.012 ng/mL (0.000-0.035)
[2020-06-08 17:37] LABS: BAND 5 % (0-10); EOSINOPHIL 4 % (0-4); LYMPHOCYTE 25 % (20.0-51.0); MYELOCYTE 5 % (0-0); NEUTROPHILS 49 % (42.0-75.2)
[2020-06-08 17:38] LABS: PLATELET ESTIMATE NORMAL (NORMAL)
[2020-06-08 18:05] LABS: COLLECTION METHOD CLEAN CATCH
[2020-06-08 18:11] LABS: PH 5 (5-8); SQUAMOUS EPITHELIAL None Seen /hpf; URINE APPEARANCE Clear; URINE BACTERIA None Seen /hpf; URINE BILIRUBIN Negative (NEGATIVE); URINE BLOOD Negative (NEGATIVE); URINE COLOR Yellow; URINE GLUCOSE Negative (NEGATIVE); URINE KETONE Negative (NEGATIVE); URINE LEUKOCYTE ESTERASE Negative (NEGATIVE); URINE NITRATE Negative (NEGATIVE); URINE PROTEIN(semi-quant) Negative (NEGATIVE); URINE RBC None Seen /hpf
[2020-06-08 19:03] VITALS: BP 177/93; PULSE 84
== END 2020-06-08 19:05 | disposition home or self-care (01) ==
LOC: COL.ER 16:26
PROVIDERS: Emergency Medicine
DX: R10.31 Right lower quadrant pain (principal); Z90.49 Acquired absence of other specified parts of digestive tract; Z88.8 Allergy status to other drugs, medicaments and biological substances; Z79.82 Long term (current) use of aspirin; Z79.1 Long term (current) use of non-steroidal anti-inflammatories (NSAID)